=== PATIENT | female | born 1985 | race Caucasian/White ===

== ENCOUNTER 2017-01-03 16:49 | Emergency (ER) | payer MEDICAID ==
[~2017-01-03] VITALS: Ht 167.6 cm; Wt 90.0 kg
[~2017-01-03 16:49] MED LIST: BUSP5 PO; CLIN1CAP5 PO; NAPR500 PO; TRAZ50TA4 PO
[2017-01-03 16:50] VITALS: BP 135/94; PULSE 106; RESP 20; TEMP 97.7; O2SAT 96
--- NOTE | 2017-01-03 18:45 | PD ---
HPI Chief Complaint: Lump, Cyst, Hernia Time Seen by Provider: 18:44 Travel History International Travel<30 days: No Contact w/Intl Traveler<30days: No Traveled to known affect area: No History of Present Illness HPI 31-year-old female with no significant medical history presents to emergency department from [facility] for evaluation of a pilonidal cyst. Patient states that has been worsening over the last 3 days. It is severely painful. She is unable to sit without significant pain. She has felt febrile until today. No nausea or vomiting. She states that they were unable to drain it and advised she come to the emergency department for general surgery evaluation. [facility] Past Medical History Medical History: Denies Significant Hx Diminished Hearing: No ?: Not LMP: DEC 2016 : 2 Para: 1 Past Surgical History Section: Yes Social History Alcohol Use: No Tobacco Use: Yes (PT STOPPED WHEN SHE FOUND OUT SHE WAS 01/11) Substance Use: No Allergies-Medications (Allergen,Severity, Reaction): Coded Allergies: Morphine (Verified Adverse Reaction, Mild, VOMITING, 08/16/16) Reported Meds & Prescriptions Reported Meds & Active Scripts Active Naprosyn (Naproxen) 500 Mg Tab 500 Mg PO Q12HR PRN Clindamycin Hcl (Clindamycin HCl) 150 Mg Cap 2 Capl PO Q6HR 10 Days Reported Trazodone Hcl (Trazodone HCl) 50 Mg Tab 50 Mg PO HS Buspar 5 Mg Tab (Buspirone HCl) 5 Mg Tab 5 Mg PO TID Review of Systems Except as stated in HPI: all other systems reviewed are Neg Physical Exam Narrative GENERAL: Well-nourished female patient, in no acute distress SKIN: There is an indurated area in the luteal cleft posterior to the anus which measures about 4 cm in diameter. It is fluctuant but there is no pointing or drainage. There is a zone of inflammation around it but no lymphangitis. HEAD: Atraumatic. Normocephalic. EYES: Pupils equal and round. No scleral icterus. No injection or drainage. ENT: No nasal bleeding or discharge. Mucous membranes pink and moist. NECK: Trachea midline. No JVD. CARDIOVASCULAR: Regular rate and rhythm. No murmur appreciated. RESPIRATORY: No accessory muscle use. Clear to auscultation. Breath sounds equal bilaterally. GASTROINTESTINAL: Abdomen soft, non-tender, nondistended. Hepatic and splenic margins not palpable. MUSCULOSKELETAL: No obvious deformities. No clubbing. No cyanosis. No edema. NEUROLOGICAL: Awake and alert. No obvious cranial nerve deficits. Motor grossly within normal limits. Normal speech. PSYCHIATRIC: Appropriate mood and affect; insight and judgment normal. Data Data Last Documented VS Vital Signs Date Time Temp Pulse Resp B/P Pulse Ox O2 Delivery O2 Flow Rate FiO2 01/03/17 16:50 97.7 106 20 135/94 96 Room Air Orders Complete Blood Count With Diff (01/03/17 18:49) Basic Metabolic Panel (Bmp) (01/03/17 18:49) Coag Profile (01/03/17 18:49) Ketorolac Inj (Toradol Inj) (01/03/17 19:00) Ct Pelvis W Iv Contrast(Rout) (01/03/17 ) Hydromorphone Pf Inj (Dilaudid Pf Inj) (01/03/17 20:45) Ondansetron Inj (Zofran Inj) (01/03/17 20:45) Clindamycin Inj (Cleocin Inj) (01/03/17 20:45) Labs Laboratory Tests Test 01/03/17 19:30 White Blood Count 15.0 TH/MM3 Red Blood Count 4.49 MIL/MM3 Hemoglobin 13.5 GM/DL Hematocrit 39.5 % Mean Corpuscular Volume 87.8 FL Mean Corpuscular Hemoglobin 29.9 PG Mean Corpuscular Hemoglobin 34.1 % Concent Red Cell Distribution Width 13.0 % Platelet Count 341 TH/MM3 Mean Platelet Volume 9.2 FL Neutrophils (%) (Auto) 77.3 % Lymphocytes (%) (Auto) 13.3 % Monocytes (%) (Auto) 7.1 % Eosinophils (%) (Auto) 1.8 % Basophils (%) (Auto) 0.5 % Neutrophils # (Auto) 11.6 TH/MM3 Lymphocytes # (Auto) 2.0 TH/MM3 Monocytes # (Auto) 1.1 TH/MM3 Eosinophils # (Auto) 0.3 TH/MM3 Basophils # (Auto) 0.1 TH/MM3 CBC Comment DIFF FINAL Differential Comment Prothrombin Time 10.5 SEC Prothromb Time International 1.0 RATIO Ratio Activated Partial 28.5 SEC Thromboplast Time Sodium Level 139 MEQ/L Potassium Level 4.2 MEQ/L Chloride Level 106 MEQ/L Carbon Dioxide Level 26.5 MEQ/L Anion Gap 7 MEQ/L Blood Urea Nitrogen 12 MG/DL Creatinine 0.75 MG/DL Estimat Glomerular Filtration 90 ML/MIN Rate Random Glucose 83 MG/DL Calcium Level 8.6 MG/DL [facility] Medical Decision Making Medical Screen Exam Complete: Yes Emergency Medical Condition: Yes Medical Record Reviewed: Yes Differential Diagnosis Pilonidal cyst versus abscess versus cellulitis versus perirectal abscess versus folliculitis versus erysipelas Narrative Course 31-year-old female presents to emergency department for evaluation. Workup is initiated in triage. Once a medical bed becomes available, patient will be transferred and care assumed by that provider. Condition: Stable Angela Phan Jan 03, 2017 18:44
[2017-01-03] MEDS ORDERED: KETOROLAC TROMETHAMINE 60 MG/2 ML (IM) VIAL IM ONE (19:00)
[2017-01-03 19:56] LABS: AUTOMATED NEUTROPHIL # 11.6 TH/MM3 (1.8-7.7); BASOPHIL # 0.1 TH/MM3 (0-0.2); BASOPHIL % 0.5 % (0.0-2.0); EOSINOPHIL # 0.3 TH/MM3 (0-0.4); EOSINOPHIL % 1.8 % (0.0-4.0); HEMATOCRIT 39.5 % (35.0-46.0); HEMO FLAGS DIFF FINAL; LYMPH % 13.3 % (9.0-44.0); MEAN CELL VOLUME 87.8 FL (80.0-100.0); MEAN CORPUSCULAR HEMOGLOBIN 29.9 PG (27.0-34.0); MEAN CORPUSCULAR HGB CONC 34.1 % (32.0-36.0); MONO % 7.1 % (0.0-8.0); NEUT % 77.3 % (16.0-70.0); PLATELET COUNT 341 TH/MM3 (150-450); RED BLOOD COUNT 4.49 MIL/MM3 (4.00-5.30)
[2017-01-03 20:05] LABS: APTT (PATIENT) 28.5 SEC (24.3-30.1); PROTHROMBIN TIME - PATIENT 10.5 SEC (9.8-11.6)
[2017-01-03 20:13] LABS: BICARBONATE 26.5 MEQ/L (21.0-32.0); POTASSIUM 4.2 MEQ/L (3.5-5.1)
[2017-01-03] MEDS ORDERED: ONDANSETRON HCL 4 MG/2 ML VIAL IV PUSH ONE (20:45)
[2017-01-03] MEDS ORDERED: CLINDAMYCIN INJ 600 MG in SODIUM CHLORIDE 0.9% INJ 100 ML IV ONE (20:45)
[2017-01-03] MEDS ORDERED: HYDROmorphone HCL PF 1 MG/ML VIAL IV PUSH ONE (20:45)
[2017-01-03 20:56] VITALS: BP 152/69; PULSE 116; RESP 16; TEMP 99.3; O2SAT 99
[2017-01-03] MEDS ORDERED: IOHEXOL 350 MG/ML 10 ML VIAL (for RAD DIAG) IV ONE (21:17)
[2017-01-03] MEDS ORDERED: BACT800T5 PO (21:38)
--- NOTE | 2017-01-03 21:41 | RADRPT ---
EXAM DATE/TIME: 01/03/2017 21:14 [place] COMPARISON: No previous studies available for comparison. INDICATIONS : Rectal abscess. IV CONTRAST: 96 cc Omnipaque 350 (iohexol) IV ORAL CONTRAST: No oral contrast ingested. RADIATION DOSE: 15.36 CTDIvol (mGy) MEDICAL HISTORY : None SURGICAL HISTORY : section. Tubal ligation. ENCOUNTER: Initial ACUITY: 3 days PAIN SCALE: 7/10 LOCATION: pelvis TECHNIQUE: Volumetric scanning of the pelvis was performed. Using automated exposure control and adjustment of t he mA and/or kV according to patient size, radiation dose was kept as low as reasonably achievable to obtain optimal diagnostic quality images. FINDINGS: BOWEL/MESENTERY: Along the posterior margin of the anus there is a thickwalled fluid collection measuring 3.6 x 2.4 cm in size. It does not appear to extend into the perirectal region. The visualized small and large bow el otherwise demonstrate no acute abnormality. There is no free fluid in the pelvis. BLADDER: There is no wall thickening or mass. RETROPERITONEUM: There is no aneurysm or lymphadenopathy. REPRODUCTIVE: Within normal limits. INGUINAL: There is no lymphadenopathy or hernia. MUSCULOSKELETAL: Within normal limits for patient age. Fat-containing umbilical hernia is identified. CONCLUSION: Posterior perianal thickwalled fluid collection characteristic of an abscess. No definite perirectal extension. Fat-containing umbilical hernia Rahul Morris MD on January 03, 2017 at 21:37 Board Certified Radiologist. This report was verified electronically.
[2017-01-03] MEDS ORDERED: LIDOCAINE 1%/EPINEPHrine 1:100,000 SOLN 20 ML VIAL INFIL ONE (22:00)
[2017-01-03] MEDS ORDERED: TETANUS/DIPHTHERIA TOXOID ADULT 0.5 ML VIAL IM ONE (22:00)
[2017-01-03] MEDS ORDERED: HYDR-3533 PO (22:02)
[2017-01-03] MEDS ORDERED: DICL75TA PO (22:02)
--- NOTE | 2017-01-03 22:11 | PD ---
Physical Exam Date Seen by Provider: Jan 03, 2017 Time Seen by Provider: 22:07 Narrative 31-year-old female that presents to the ED for evaluation of possible abscess to his buttocks. Patient was seen initially by Angela LINCOLN for evaluation of this. Please refer to her note. Case was signed out to me pending disposition. From my physical exam patient does appear to have the perirectal abscesses with possible rectal abscess. Patient has a lot of pain when I do a rectal examine her and there is some fluctuance noted on exam. Recommendation for me was to do a CT scan in addition to lab work. Patient was agreeable for this. Data Data Last Documented VS Vital Signs Date Time Temp Pulse Resp B/P Pulse Ox O2 Delivery O2 Flow Rate FiO2 01/03/17 20:56 99.3 116 16 152/69 99 Room Air Orders Complete Blood Count With Diff (01/03/17 18:49) Basic Metabolic Panel (Bmp) (01/03/17 18:49) Coag Profile (01/03/17 18:49) Ketorolac Inj (Toradol Inj) (01/03/17 19:00) Ct Pelvis W Iv Contrast(Rout) (01/03/17 ) Hydromorphone Pf Inj (Dilaudid Pf Inj) (01/03/17 20:45) Ondansetron Inj (Zofran Inj) (01/03/17 20:45) Clindamycin Inj (Cleocin Inj) (01/03/17 20:45) Iohexol 350 Inj (Omnipaque 350 Inj) (01/03/17 21:17) Wound Culture And Gram Stain (01/03/17 21:50) Wound Care (01/03/17 21:50) Tetanus/Diphtheria Tox Adult (Tetanus/Di (01/03/17 22:00) Lidocai-Epi 1%-1:100,000 Inj (Xylocaine- (01/03/17 22:00) Labs Laboratory Tests Test 01/03/17 19:30 White Blood Count 15.0 TH/MM3 Red Blood Count 4.49 MIL/MM3 Hemoglobin 13.5 GM/DL Hematocrit 39.5 % Mean Corpuscular Volume 87.8 FL Mean Corpuscular Hemoglobin 29.9 PG Mean Corpuscular Hemoglobin 34.1 % Concent Red Cell Distribution Width 13.0 % Platelet Count 341 TH/MM3 Mean Platelet Volume 9.2 FL Neutrophils (%) (Auto) 77.3 % Lymphocytes (%) (Auto) 13.3 % Monocytes (%) (Auto) 7.1 % Eosinophils (%) (Auto) 1.8 % Basophils (%) (Auto) 0.5 % Neutrophils # (Auto) 11.6 TH/MM3 Lymphocytes # (Auto) 2.0 TH/MM3 Monocytes # (Auto) 1.1 TH/MM3 Eosinophils # (Auto) 0.3 TH/MM3 Basophils # (Auto) 0.1 TH/MM3 CBC Comment DIFF FINAL Differential Comment Prothrombin Time 10.5 SEC Prothromb Time International 1.0 RATIO Ratio Activated Partial 28.5 SEC Thromboplast Time Sodium Level 139 MEQ/L Potassium Level 4.2 MEQ/L Chloride Level 106 MEQ/L Carbon Dioxide Level 26.5 MEQ/L Anion Gap 7 MEQ/L Blood Urea Nitrogen 12 MG/DL Creatinine 0.75 MG/DL Estimat Glomerular Filtration 90 ML/MIN Rate Random Glucose 83 MG/DL Calcium Level 8.6 MG/DL [facility] Medical Record Reviewed: Yes Supervised Visit with MARIA M: No Interpretation(s) Last Impressions Pelvis CT 01/03/17 0000 Signed Impressions: Service Date/Time: Tuesday, January 03, 2017 21:14 - CONCLUSION: Posterior perianal thickwalled fluid collection characteristic of an abscess. No definite perirectal extension. Fat-containing umbilical hernia Rahul Morris MD CBC & BMP Diagram 01/03/17 19:30 Differential Diagnosis Rectal abscess versus for rectal abscess versus gluteal abscess Narrative Course 31-year-old female that presents to the ED for evaluation of abscess. Patient was properly examined and was found to have signs and symptoms consistent with appears to be abscess. Concern for rectal abscess. CT was ordered and was negative for this. Labs essentially show what is accounting elevation but otherwise unremarkable. Patient was given clindamycin IV. After explained procedure to the patient and she agreed to this abscess was I&D as stated in procedure note after CT came back negative for rectal abscess. Culture was done. Packing was placed. minimal purulence obtained, mostly blood. Patient tolerate produre. she had wound care. Patient will be discharged home with prescription for Lortab. Patient was told to continue taking the Bactrim as already prescribed by the urgent care. Recheck in 2 days for packing removal. See ED if worsening symptoms. Procedures Procedure Narrative After the risks and benefits were discussed the following procedure was performed: INCISION AND DRAINAGE OF ABSCESS: The area was prepped and was sterilely draped. A subcutaneous wheal of 1 % Xylocaine with a total number 5 mL was used to anesthetize the area. The area was properly anesthetized. A number 11 scalpel was used to make a 1 -cm incision across the area of the abscess. Cultures were obtained. The abscess was drained an irrigated with normal saline. Quarter inch iodoform packing was placed in the wound. Sterile dressing applied. Patient advised to have packing removed in two days. Diagnosis Primary Impression: Perirectal abscess Patient Instructions: Narcotic given in the ED, General Instructions Additional Instruction: Take medications as prescribed. Follow-up with PCP. See ED for any worsening symptoms. Do not drink or drive while taking pain medication. Apply ice or heat as needed for pain Med/Other Pt SpecificInfo: Prescription(s) given, Wound Care Scripts Diclofenac Sodium DR 75 Mg Tabdr75 Mg PO BID PRN (PAIN SCALE 1 TO 10) #20 TAB Prov:Judah Viveros MD 01/03/17 Hydrocodone-Acetaminophen (Lortab)5-325 Mg Tab1 Tab PO Q6H PRN (PAIN) #14 TAB Prov:Judah Viveros MD 01/03/17 Disposition: 01 DISCHARGE HOME Condition: Stable Ryan Coburn Jan 03, 2017 22:11
== END 2017-01-03 22:42 | disposition home or self-care (01) ==
LOC: NETRI 16:49 → NEPE 22:42
DX: K61.1 Rectal abscess (principal); B96.20 Unspecified Escherichia coli [E. coli] as the cause of diseases classified elsewhere
CPT/HCPCS: 10061; 72193; 80048; 85025; 85610; 85730; 87070; 87077; 87186; 90471; 90714; 96365; 96372; 96375; 99283; J1170; J1885; J2405; Q9967; 87205

== ENCOUNTER 2017-01-05 20:58 | Emergency (ER) | payer MEDICAID ==
[~2017-01-05] VITALS: Ht 160 cm; Wt 89.0 kg
[~2017-01-05 20:58] MED LIST changes: +BACT800T5 PO; -BUSP5 PO; -CLIN1CAP5 PO; +DICL75TA PO; +HYDR-3533 PO; -NAPR500 PO; -TRAZ50TA4 PO
[2017-01-05 21:01] VITALS: BP 112/71; PULSE 120; RESP 18; TEMP 99.8; O2SAT 96
--- NOTE | 2017-01-05 21:19 | PD ---
HPI Chief Complaint: Skin Problem Time Seen by Provider: 21:06 Travel History International Travel<30 days: No Contact w/Intl Traveler<30days: No Traveled to known affect area: No History of Present Illness HPI This 31-year-old female is here for recheck of a perirectal abscess. sHe was at [facility] on January with complaint of rectal pain. She had a CT scan which showed an abscess and she had an incision and drainage of the abscess. She still having pain at the site. sHe says the packing fell out she is not sure if it all fell out. She thinks there may still be some pus inside [facility] Past Medical History Diminished Hearing: No ?: Not LMP: DEC : 5 Para: 4 Miscarriage: 1 Tubal Ligation: Yes Past Surgical History Section: Yes (4) Other Surgery: Yes (MULTIPLE CYST) Social History Alcohol Use: No Tobacco Use: Yes (1/2PPD) Substance Use: No Allergies-Medications (Allergen,Severity, Reaction): Coded Allergies: Keflex (Verified Allergy, Severe, Swelling, 01/05/17) Morphine (Verified Adverse Reaction, Mild, VOMITING, 01/05/17) Diclofenac (Verified Adverse Reaction, Unknown, N/V FEVER, 01/05/17) Reported Meds & Prescriptions Reported Meds & Active Scripts Active Diclofenac Sodium DR (Diclofenac Sodium) 75 Mg Tabdr 75 Mg PO BID PRN Lortab (Hydrocodone-Acetaminophen) 5-325 Mg Tab 1 Tab PO Q6H PRN Reported Bactrim DS (Sulfamethoxazole-Trimethoprim) 800-160 Mg Tab 1 Tab PO BID Review of Systems General / Constitutional: Positive: Fever, No: Chills Eyes: No: Diploplia, Blurred Vision HENT: No: Headaches, Vertigo Cardiovascular: No: Chest Pain or Discomfort, Palpitations Respiratory: No: Cough, Shortness of Breath Gastrointestinal: No: Nausea, Vomiting Genitourinary: No: Urgency, Frequency Musculoskeletal: No: Myalgias, Arthralgias Skin: No Rash, No Itching Neurologic: No: Weakness, Dizziness Hematologic/Lymphatic: No: Easy Bruising Physical Exam Narrative GENERAL: [-] SKIN: Warm and dry. HEAD: Atraumatic. Normocephalic. EYES: Pupils equal and round. No scleral icterus. No injection or drainage. ENT: No nasal bleeding or discharge. Mucous membranes pink and moist. NECK: Trachea midline. No JVD. The perirectal area above the anus is an area of induration which is quite tender. The incision from previously is healing well and I don't see any fat pack in the MUSCULOSKELETAL: No obvious deformities. No clubbing. No cyanosis. No edema. NEUROLOGICAL: Awake and alert. No obvious cranial nerve deficits. Motor grossly within normal limits. Normal speech. PSYCHIATRIC: Appropriate mood and affect; insight and judgment normal. Data Data Last Documented VS Vital Signs Date Time Temp Pulse Resp B/P Pulse Ox O2 Delivery O2 Flow Rate FiO2 01/05/17 21:15 18 01/05/17 21:01 99.8 120 112/71 96 Orders Lidocai-Epi 1%-1:100,000 Inj (Xylocaine- (01/05/17 21:30) MDM Medical Decision Making Medical Screen Exam Complete: Yes Emergency Medical Condition: Yes Medical Record Reviewed: Yes Differential Diagnosis Frontal includes healing abscess, residual abscess Narrative Course The area of induration was anesthetized with 1% lidocaine and a stab incision was made and several cc of pus was obtained. The patient tolerated the procedure well Diagnosis Primary Impression: Perianal abscess Additional Instructions: Sitz baths twice daily Disposition: DISCHARGE HOME Condition: Stable Tomi Tan MD Jan 05, 2017 21:19
[2017-01-05] MEDS ORDERED: LIDOCAINE 1%/EPINEPHrine 1:100,000 SOLN 20 ML VIAL INFIL ONE (21:30)
[2017-01-05 21:59] VITALS: BP 114/74; PULSE 88; RESP 18; O2SAT 97
== END 2017-01-05 22:01 | disposition home or self-care (01) ==
LOC: PHED 20:58
DX: K61.0 Anal abscess (principal); F17.210 Nicotine dependence, cigarettes, uncomplicated
CPT/HCPCS: 46050

== ENCOUNTER 2017-01-29 16:26 | Emergency (ER) | payer MEDICAID ==
[~2017-01-29] VITALS: Ht 160 cm; Wt 88.0 kg
[2017-01-29 16:41] VITALS: BP 121/74; PULSE 120; RESP 15; TEMP 98.9; O2SAT 98
== END 2017-01-29 18:24 | disposition left against medical advice (07) ==
LOC: PHED 16:26
DX: R11.10 Vomiting, unspecified (principal); R19.7 Diarrhea, unspecified; Z53.21 Procedure and treatment not carried out due to patient leaving prior to being seen by health care provider
CPT/HCPCS: 99281